=== PATIENT | male | born 1955 | race Caucasian/White ===

== ENCOUNTER 2022-08-11 20:31 | Emergency (ER) | payer MEDICARE ==
--- NOTE | 2022-08-11 20:42 | ERPHSYRPT ---
- History of Present Illness Time Seen by Provider: 08/11/22 20:42 Source: patient Exam Limitations: no limitations Physician History: This is a 66-year-old white male patient who was in a trailer and slipped on wet linoleum hitting his left occipital region of his scalp on the edge of a table/cabinet. He did not lose consciousness. He does not want a tetanus injection. Occurred: just prior to arrival Severity: mild Head Injury Location: occipital Method of Injury: fell Loss of Consciousness: no loss of consciousness (Slipped) Associated Symptoms: denies symptoms Allergies/Adverse Reactions: No Known Drug Allergies Allergy (Unverified 08/11/22 20:40) Travel Risk - International Travel Have you traveled outside of the country in past 3 weeks: No - Coronavirus Screening Are you exhibiting any of the following symptoms?: No Close contact with a COVID-19 positive Pt in past 14-21 Days: No - Review of Systems Constitutional: No Symptoms Eyes: No Symptoms Ears, Nose, & Throat: No Symptoms Respiratory: No Symptoms Cardiac: No Symptoms Abdominal/Gastrointestinal: No Symptoms Genitourinary Symptoms: No Symptoms Musculoskeletal: No Symptoms Skin: Other (Left occipital scalp laceration approximate 5 cm in length) Neurological: No Symptoms Psychological: No Symptoms Endocrine: No Symptoms Hematologic/Lymphatic: No Symptoms Immunological/Allergic: No Symptoms All Other Systems: Reviewed and Negative - Past Medical History Pertinent Past Medical History: Yes - Past Surgical History Past Surgical History: Yes - Nursing Vital Signs Nursing Vital Signs: Initial Vital Signs Temperature 98.2 F 08/11/22 20:41 Pulse Rate 93 H 08/11/22 20:41 Respiratory Rate 16 08/11/22 20:41 Blood Pressure 135/89 08/11/22 20:41 O2 Sat by Pulse Oximetry 94 L 08/11/22 20:41 Pain Scale Pain Intensity 5 - [place] Coma Score Best Eye Response (Pascale): (4) open spontaneously Best Verbal Response ([place]): (5) oriented Best Motor Response ([place]): (6) obeys commands [place] Total: 15 - Physical Exam General Appearance: no apparent distress, alert Head Injury: lacerations (5 cm scalp laceration left occipital region. No active bleeding. No foreign body. Evaluation was made to the base) Eye Exam: bilateral eye: normal inspection, PERRL, EOMI ENT Exam: airway nml, nml ext.inspection Neck Exam: supple, trachea midline, full range of motion, normal alignment, normal inspection Cardiovascular/Respiratory Exam: chest non-tender, no respiratory distress Gastrointestinal/Abdominal Exam: non tender Rectal Exam: not done Back Exam: normal inspection, normal range of motion, vertebral tenderness, No CVA tenderness Extremity Exam: non-tender, normal range of motion, normal inspection, normal capillary refill, no calf tenderness, no pedal edema, pelvis stable Mental Status Exam: alert, oriented x 3, 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 hearing, normal speech, PERRL Motor/Sensory Exam: no motor deficit, no sensory deficit Skin Exam: laceration Lymphatic Exam: No adenopathy (See above) SpO2 Interpretation: normal O2 Delivery: Room Air Procedures - Laceration/Wound Repair Occipital Time of Procedure: 21:00 Wound Location: Left, head (Typical left side scalp laceration) Wound Length (cm): 5 Wound's Depth, Shape: superficial, linear Wound Explored: clean (Evaluation and exploration of the laceration site was performed in a bloodless field to the base and no foreign bodies noted.) Irrigated: Yes Hibiclens Prep: Yes Wound Repaired With: Abelardo (6 abelardo were placed) Layer Closure?: No - Course Nursing assessment & vital signs reviewed: Yes Ordered Tests: Medication Summary Discontinued Medications Generic Name Dose Route Start Last Admin Trade Name Otilia PRN Reason Stop Dose Admin Hydrocodone Bitart/Acetaminophen 1 tab 08/11/22 21:03 Hydrocodone/Apap 5/325 1 Tab Tablet PO 08/11/22 21:04 STAT ONE - Progress Progress: improved Progress Note: 08/11/22 21:08 This patient's medical issue is 1 of low complexity. The level of complexity and the work-up performed was based on the review of the patient's past medical history, review of the patient's medication list, review of the drug allergy list, history present illness and physical findings on examination. No laboratory work-up or radiographic studies are necessary. Patient refuses tetanus injection. 6 abelardo placed in the scalp to repair the laceration. Staple removal in 8 to 10 days Counseled pt/family regarding: diagnosis, need for follow-up Medical Desision Making - Independent Historian Additional History obtained from: Family - Diagnostic Testing Diagnostic test were ordered, analyzed, and reviewed by me: No - Risk of complications Minimal Risk: Minimal risk of morbidity - Departure Departure Disposition: Home Clinical Impression: Occipital scalp laceration Condition: Stable Critical Care Time: No Additional Instructions: Keep the site dry for 24 hours. After 24 hours let the soap and water flush over the laceration repair site. Blot dry or use a hairdryer. Do not rub the repair site. Use Tylenol and ibuprofen for pain control. Staple removal in 8 to 10 days. May use an ice pack to the area.
[2022-08-11 20:50] VITALS: BP 135/89
[2022-08-11] MEDS ORDERED: NORCO 5/325 MG PO ONE ×2 (21:03)
[2022-08-11] MEDS ORDERED: NORCO 5/325 MG ONE ×2 (21:05→21:08)
[2022-08-11 21:24] VITALS: PULSE 89; O2SAT 98
== END 2022-08-11 21:20 | disposition home or self-care (01) ==
LOC: ED 20:31
DX: S01.01XA Laceration without foreign body of scalp, initial encounter (principal); W01.0XXA Fall on same level from slipping, tripping and stumbling without subsequent striking against object, initial encounter; Z20.828 Contact with and (suspected) exposure to other viral communicable diseases
CPT/HCPCS: 12002; 99281; A9270-GY